=== PATIENT | male | born 1955 | race Caucasian/White ===

== ENCOUNTER → 2018-11-21 | Outpatient (CLI) | payer MEDICARE, OTHER ==
[~2018-11-21] MED LIST: ACET325 PO; BISA10S; FLUOXETINE HCL60 MG PO; GABA300 PO; HYDR1TAB94; IBUP600; Kristalose20 GM PO; LOPE2C; MIRT30ST; Milk Of Ma400 MG/5 M; Mirtazapine45 M1 PO; POWDERLAX238 GM PO; PROC25S; Prozac20 MG; REGULOID PO; RISP2; RISP3 PO; TAMS.4ER PO
[2018-11-22 09:03] LABS: U Amphetamine Screen Not Detected; U Barbituate Screen Not Detected; U Benzodiazapine Screen DETECTED; U Buprenorphine Screen Not Detected; U Cannabinoids Screen Not Detected; U Cocaine Screen Not Detected; U Methadone Screen Not Detected; U Methamphetamine Screen Not Detected; U Opiates Screen DETECTED; U Oxycodone Screen Not Detected; U Phencyclidine Screen Not Detected; U Propoxyphene Screen Not Detected
== END | disposition home or self-care (01) ==
LOC: LAB 19:44 → LAB SHORT 19:44
PROVIDERS: Nurse Practitioner Family
DX: R20.8 Other disturbances of skin sensation (principal); Z87.820 Personal history of traumatic brain injury; Z79.899 Other long term (current) drug therapy

== ENCOUNTER → 2018-12-04 | Outpatient (CLI) | payer MEDICARE, OTHER ==
[2018-12-04 14:00] LABS: Source, Urine Clean Catch
[2018-12-04 14:07] LABS: Bilirubin, Urine Neg (Neg); Blood, Urine Neg (Neg); Glucose Qualitative, Urine Neg (Neg); Ketones, Urine Neg (Neg); Leukocyte Esterase, Urine 1+ (Neg); Nitrite, Urine Neg (Neg); Protein, Urine Neg (Neg); Urobilinogen, Urine NORM (Normal)
[2018-12-04 14:14] LABS: Appearance, Urine Clear (Clear); Color, Urine Yellow (P-Yellow)
[2018-12-04 14:25] LABS: U Amphetamine Screen Not Detected; U Barbituate Screen Not Detected; U Benzodiazapine Screen DETECTED; U Buprenorphine Screen Not Detected; U Cannabinoids Screen Not Detected; U Cocaine Screen Not Detected; U Methadone Screen Not Detected; U Methamphetamine Screen Not Detected; U Opiates Screen Not Detected; U Oxycodone Screen Not Detected; U Phencyclidine Screen Not Detected; U Propoxyphene Screen Not Detected
[2018-12-04 14:27] LABS: Red Blood Cells, Urine Not Seen /hpf (0-2)
[2018-12-04 14:28] LABS: Squamous Epithelial Cells Mod /hpf (Few)
[2018-12-04 14:29] LABS: Bacteria Few /hpf
== END | disposition home or self-care (01) ==
LOC: LAB SHORT 13:58 → LAB 13:58
PROVIDERS: Nurse Practitioner Family
DX: Z51.81 Encounter for therapeutic drug level monitoring (principal); R20.8 Other disturbances of skin sensation; Z87.820 Personal history of traumatic brain injury; Z79.899 Other long term (current) drug therapy
CPT/HCPCS: 81001; 87086

== ENCOUNTER 2018-12-17 09:08 | Day surgery (SDC) | payer MEDICARE, OTHER ==
[~2018-12-17] VITALS: Ht 172.7 cm; Wt 70.5 kg
== END 2018-12-17 12:05 | disposition home or self-care (01) ==
LOC: ORSCSDS 09:08
DX: R15.9 Full incontinence of feces (principal); D12.3 Benign neoplasm of transverse colon; D12.2 Benign neoplasm of ascending colon; D12.4 Benign neoplasm of descending colon; D12.5 Benign neoplasm of sigmoid colon; K57.30 Diverticulosis of large intestine without perforation or abscess without bleeding; K64.8 Other hemorrhoids; Z86.010 Personal history of colon polyps; B18.2 Chronic viral hepatitis C; I10 Essential (primary) hypertension; I63.9 Cerebral infarction, unspecified; G81.94 Hemiplegia, unspecified affecting left nondominant side; F32.9 Major depressive disorder, single episode, unspecified; Z79.899 Other long term (current) drug therapy; F17.210 Nicotine dependence, cigarettes, uncomplicated
CPT/HCPCS: 88305; J2704; J7120

== ENCOUNTER → 2019-03-25 | Outpatient (CLI) | payer MEDICARE, OTHER ==
[2019-03-25 20:25] LABS: Appearance, Urine Clear (Clear); Bilirubin, Urine Neg (Neg); Blood, Urine Neg (Neg); Color, Urine Yellow (P-Yellow); Glucose Qualitative, Urine Neg (Neg); Ketones, Urine Neg (Neg); Leukocyte Esterase, Urine 2+ (Neg); Nitrite, Urine Neg (Neg); Protein, Urine Neg (Neg); Urobilinogen, Urine NORM (Normal); pH, Urine 6.5 (5.0-8.0)
[2019-03-25 20:55] LABS: Bacteria Many /hpf; Red Blood Cells, Urine 0-2 /hpf (0-2); Squamous Epithelial Cells Few /hpf (Few)
== END | disposition home or self-care (01) ==
LOC: LAB SHORT 19:47 → LAB 19:47
PROVIDERS: Nurse Practitioner Family
DX: N39.0 Urinary tract infection, site not specified (principal)
CPT/HCPCS: 81001; 87077; 87086; 87186

== ENCOUNTER → 2019-04-09 | Outpatient (CLI) | payer MEDICARE, OTHER ==
[2019-04-09 11:34] LABS: Source, Urine Clean Catch
[2019-04-09 12:40] LABS: Bilirubin, Urine Neg (Neg); Blood, Urine 4+ (Neg); Glucose Qualitative, Urine Neg (Neg); Ketones, Urine Neg (Neg); Leukocyte Esterase, Urine Neg (Neg); Nitrite, Urine Neg (Neg); Protein, Urine Neg (Neg); Urobilinogen, Urine NORM (Normal); pH, Urine 6.5 (5.0-8.0)
[2019-04-09 12:55] LABS: Appearance, Urine Clear (Clear); Color, Urine Yellow (P-Yellow)
[2019-04-09 12:56] LABS: Bacteria Few /hpf; Squamous Epithelial Cells Few /hpf (Few); White Blood Cells, Urine 0-2 /hpf (0-5)
== END | disposition home or self-care (01) ==
LOC: LAB 11:32 → LAB SHORT 11:32
PROVIDERS: Nurse Practitioner Family
DX: N39.0 Urinary tract infection, site not specified (principal)
CPT/HCPCS: 81001

== ENCOUNTER → 2019-04-16 | Outpatient (CLI) | payer MEDICARE, OTHER ==
[2019-04-16 14:09] LABS: Bilirubin, Urine Neg (Neg); Blood, Urine Neg (Neg); Glucose Qualitative, Urine Neg (Neg); Ketones, Urine Neg (Neg); Leukocyte Esterase, Urine Neg (Neg); Nitrite, Urine Neg (Neg); Protein, Urine Neg (Neg); Specific Gravity, Urine 1.015 (1.003-1.022); Urobilinogen, Urine NORM (Normal); pH, Urine 6.5 (5.0-8.0)
[2019-04-16 14:24] LABS: Appearance, Urine Clear (Clear); Color, Urine Yellow (P-Yellow)
== END ==
LOC: LAB 12:35 → LAB SHORT 12:35
PROVIDERS: Nurse Practitioner Family
DX: N39.0 Urinary tract infection, site not specified (principal); R31.29 Other microscopic hematuria
CPT/HCPCS: 81003

== ENCOUNTER → 2019-06-19 | Outpatient (CLI) | payer MEDICARE, OTHER ==
[~2019-06-19] MED LIST changes: +LORA.5 PO
[2019-06-19 19:28] LABS: Source, Urine Clean Catch
[2019-06-19 20:13] LABS: Bilirubin, Urine Neg (Neg); Blood, Urine Neg (Neg); Glucose Qualitative, Urine Neg (Neg); Ketones, Urine Neg (Neg); Leukocyte Esterase, Urine 1+ (Neg); Nitrite, Urine Neg (Neg); Protein, Urine Neg (Neg); Urobilinogen, Urine NORM (Normal); pH, Urine 6.5 (5.0-8.0)
[2019-06-19 20:23] LABS: Appearance, Urine Clear (Clear); Color, Urine Yellow (P-Yellow)
[2019-06-19 20:25] LABS: Bacteria Rare /hpf; Red Blood Cells, Urine 0-2 /hpf (0-2); Squamous Epithelial Cells Few /hpf (Few)
== END | disposition home or self-care (01) ==
LOC: LAB 19:26 → LAB SHORT 19:26
PROVIDERS: Nurse Practitioner Family
DX: N39.0 Urinary tract infection, site not specified (principal)
CPT/HCPCS: 81001; 87077; 87086; 87186

== ENCOUNTER → 2019-07-04 | Outpatient (CLI) | payer MEDICARE, OTHER ==
[2019-07-05 13:19] LABS: Source, Urine Clean Catch
[2019-07-05 14:44] LABS: Bilirubin, Urine Neg (Neg); Blood, Urine Neg (Neg); Glucose Qualitative, Urine Neg (Neg); Ketones, Urine Neg (Neg); Leukocyte Esterase, Urine Neg (Neg); Nitrite, Urine Neg (Neg); Protein, Urine Neg (Neg); Urobilinogen, Urine NORM (Normal); pH, Urine 6.5 (5.0-8.0)
[2019-07-05 15:04] LABS: Appearance, Urine Clear (Clear); Color, Urine Pale Yellow (P-Yellow)
== END ==
LOC: LAB 12:43 → LAB EV 12:43 → LAB SHORT 12:43
PROVIDERS: Nurse Practitioner Family
DX: N39.0 Urinary tract infection, site not specified (principal)
CPT/HCPCS: 81003

== ENCOUNTER 2019-07-10 22:51 | Emergency (ER) | payer MEDICARE, OTHER ==
[~2019-07-10] VITALS: Ht 172.7 cm; Wt 63.5 kg
[~2019-07-10 22:51] MED LIST changes: -LORA.5 PO
[2019-07-10] MEDS ORDERED: LORA.5 PO (23:16)
== END 2019-07-11 00:57 | disposition home or self-care (01) ==
LOC: ER 22:51
DX: Z00.8 Encounter for other general examination (principal); F17.200 Nicotine dependence, unspecified, uncomplicated; Z79.899 Other long term (current) drug therapy
CPT/HCPCS: 99284

== ENCOUNTER → 2019-07-30 | Outpatient (CLI) | payer MEDICARE, OTHER ==
[~2019-07-30] MED LIST changes: +LORA.5 PO
[2019-07-31 13:26] LABS: Bilirubin, Urine Neg (Neg); Blood, Urine Neg (Neg); Glucose Qualitative, Urine Neg (Neg); Ketones, Urine Neg (Neg); Leukocyte Esterase, Urine 1+ (Neg); Nitrite, Urine Neg (Neg); Protein, Urine Neg (Neg); Urobilinogen, Urine NORM (Normal)
[2019-07-31 13:55] LABS: Appearance, Urine Clear (Clear); Bacteria Few /hpf; Color, Urine Yellow (P-Yellow); Red Blood Cells, Urine 0-2 /hpf (0-2); Squamous Epithelial Cells Rare /hpf (Few); White Blood Cells, Urine 0-2 /hpf (0-5)
== END | disposition home or self-care (01) ==
LOC: LAB SHORT 18:25 → LAB 18:25
PROVIDERS: Nurse Practitioner Family
DX: N39.0 Urinary tract infection, site not specified (principal)
CPT/HCPCS: 81001

== ENCOUNTER → 2019-09-18 | Outpatient (CLI) | payer MEDICARE, OTHER ==
[2019-09-21 15:08] LABS: HEPATITIS C QUANTITATION HCV Not Detected IU/mL (.)
== END | disposition home or self-care (01) ==
LOC: LAB 12:08 → LAB SHORT 12:08
PROVIDERS: Internal Medicine Gastroenterology
DX: B19.20 Unspecified viral hepatitis C without hepatic coma (principal)
CPT/HCPCS: 87522

== ENCOUNTER → 2019-10-08 | Outpatient (CLI) | payer MEDICARE, OTHER ==
[2019-10-08 14:03] LABS: Valproic Acid 40.8 ug/mL (50.0-100.0)
== END | disposition home or self-care (01) ==
LOC: LAB 12:29 → LAB SHORT 12:29
PROVIDERS: Psychiatry & Neurology Psychiatry
DX: Z51.81 Encounter for therapeutic drug level monitoring (principal); Z79.899 Other long term (current) drug therapy
CPT/HCPCS: 80164

== ENCOUNTER → 2019-10-10 | Outpatient (CLI) | payer MEDICARE, OTHER ==
[2019-10-10 14:54] LABS: Bilirubin, Urine Neg (Neg); Blood, Urine Neg (Neg); Glucose Qualitative, Urine Neg (Neg); Ketones, Urine 1+ (Neg); Leukocyte Esterase, Urine 2+ (Neg); Nitrite, Urine Pos (Neg); Protein, Urine Neg (Neg); Urobilinogen, Urine NORM (Normal)
[2019-10-10 15:40] LABS: Appearance, Urine Clear (Clear); Color, Urine Yellow (P-Yellow)
[2019-10-10 15:41] LABS: Bacteria Many /hpf; Mucus Light (0-Heavy); Red Blood Cells, Urine 0-2 /hpf (0-2); Squamous Epithelial Cells Few /hpf (Few)
== END | disposition home or self-care (01) ==
LOC: LAB 12:24 → LAB SHORT 12:24
PROVIDERS: Nurse Practitioner Family
DX: N39.0 Urinary tract infection, site not specified (principal)
CPT/HCPCS: 81001; 87077; 87086; 87186

== ENCOUNTER 2019-12-11 08:17 | Day surgery (SDC) | payer MEDICARE, OTHER ==
[~2019-12-11] VITALS: Ht 172.7 cm; Wt 65.9 kg
[~2019-12-11 08:17] MED LIST changes: +Depakote125 MG; +Haloperidol2 MG/1 ML; +LIBRAX CAPSULE1 EACH; +Norco 5-325 Ta1 EACH
--- NOTE | 2019-12-11 10:49 | NUR ---
12/11/19 1049 Shayna Paredes PATIENT HAD CAREGIVER THAT CAME WITH HIM FROM HIS [facility]. SHE WAS ABLE TO DRESS THE PATIENT AND TRANSFER HIM TO THE WHEELCHAIR. PATIENT WAS DISCHARGED IN STABLE CONDITION
== END 2019-12-11 10:40 | disposition home or self-care (01) ==
LOC: ORSCSDS 08:17
PROVIDERS: Internal Medicine Gastroenterology
PROC: 0DBL8ZX Excision of Transverse Colon, Via Natural or Artificial Opening Endoscopic, Diagnostic (ICD-10-PCS; principal; 2019-12-11 09:45)
PROC: 0DBM8ZX Excision of Descending Colon, Via Natural or Artificial Opening Endoscopic, Diagnostic (ICD-10-PCS; principal; 2019-12-11 09:45)
PROC: 0DBN8ZX Excision of Sigmoid Colon, Via Natural or Artificial Opening Endoscopic, Diagnostic (ICD-10-PCS; principal; 2019-12-11 09:45)
PROC: 0DBK8ZX Excision of Ascending Colon, Via Natural or Artificial Opening Endoscopic, Diagnostic (ICD-10-PCS; principal; 2019-12-11 09:45)
DX: Z86.010 Personal history of colon polyps (principal); D12.3 Benign neoplasm of transverse colon; D12.4 Benign neoplasm of descending colon; K63.5 Polyp of colon; K64.1 Second degree hemorrhoids; I10 Essential (primary) hypertension; F17.210 Nicotine dependence, cigarettes, uncomplicated; Z79.899 Other long term (current) drug therapy
CPT/HCPCS: 88305; J2704; J7120

== ENCOUNTER → 2020-01-17 | Outpatient (CLI) | payer MEDICARE, OTHER ==
[2020-01-18 11:24] LABS: Source, Urine Clean Catch
[2020-01-18 11:44] LABS: Appearance, Urine Clear (Clear); Bilirubin, Urine Neg (Neg); Blood, Urine Neg (Neg); Color, Urine Yellow (P-Yellow); Glucose Qualitative, Urine Neg (Neg); Ketones, Urine Neg (Neg); Leukocyte Esterase, Urine 3+ (Neg); Nitrite, Urine Neg (Neg); Protein, Urine Neg (Neg); Urobilinogen, Urine NORM (Normal)
[2020-01-18 12:02] LABS: Red Blood Cells, Urine 0-2 /hpf (0-2)
[2020-01-18 12:03] LABS: Bacteria Mod /hpf; Squamous Epithelial Cells Rare /hpf (Few)
== END | disposition home or self-care (01) ==
LOC: LAB 11:21 → LAB SHORT 11:21
PROVIDERS: Nurse Practitioner Family
DX: N39.0 Urinary tract infection, site not specified (principal)
CPT/HCPCS: 81001; 87077; 87086; 87186

== ENCOUNTER → 2020-02-11 | Outpatient (CLI) | payer MEDICARE, OTHER ==
[2020-02-11 16:51] LABS: Valproic Acid 92.3 ug/mL (50.0-100.0)
== END | disposition home or self-care (01) ==
LOC: LAB 12:31 → LAB SHORT 12:31
PROVIDERS: Psychiatry & Neurology Psychiatry
DX: Z51.81 Encounter for therapeutic drug level monitoring (principal); Z79.899 Other long term (current) drug therapy
CPT/HCPCS: 80164

== ENCOUNTER → 2020-03-02 | Outpatient (CLI) | payer MEDICARE, OTHER ==
[2020-03-02 15:28] LABS: Bilirubin, Urine Neg (Neg); Blood, Urine Neg (Neg); Glucose Qualitative, Urine Neg (Neg); Ketones, Urine Neg (Neg); Leukocyte Esterase, Urine 3+ (Neg); Nitrite, Urine Neg (Neg); Protein, Urine Neg (Neg); Urobilinogen, Urine NORM (Normal)
[2020-03-02 15:43] LABS: Appearance, Urine Cloudy (Clear); Color, Urine Yellow (P-Yellow)
[2020-03-02 15:53] LABS: Bacteria Many /hpf; Red Blood Cells, Urine 0-2 /hpf (0-2); Squamous Epithelial Cells Few /hpf (Few); Triple Phosphate Crystals Mod /hpf
== END | disposition home or self-care (01) ==
LOC: LAB SHORT 13:31 → LAB 13:31
PROVIDERS: Nurse Practitioner Family
DX: N39.0 Urinary tract infection, site not specified (principal)
CPT/HCPCS: 81001; 87077; 87086; 87186

== ENCOUNTER 2020-03-30 08:03 | Emergency (ER) | payer MEDICARE, OTHER ==
[~2020-03-30] VITALS: Ht 175.3 cm; Wt 74.4 kg
[2020-03-30 09:03] LABS: BASOPHILS ABSOLUTE AUTO 0.03 K/mm3 (0.00-0.23); BASOPHILS PERCENT AUTO 1 % (0-2); EOSINOPHILS ABSOLUTE AUTO 0.03 K/mm3 (0.00-0.68); EOSINOPHILS PERCENT AUTO 1 % (0-6); Hematocrit 32.6 % (37.0-53.0); Hemoglobin 10.7 g/dL (13.5-17.5); IMMATURE GRAN ABSOLUTE AUTO 0.06 K/mm3 (0.00-0.10); IMMATURE GRAN PERCENT AUTO 1 % (0-1); LYMPHOCYTES ABSOLUTE AUTO 1.93 K/mm3 (0.84-5.20); LYMPHOCYTES PERCENT AUTO 29 % (21-46); MONOCYTES ABSOLUTE AUTO 1.07 K/mm3 (0.16-1.47); MONOCYTES PERCENT AUTO 16 % (4-13); Mean Corpuscular HGB 30.3 pg (26.0-34.0); Mean Corpuscular HGB Conc 32.8 g/dL (31.5-36.5); Mean Corpuscular Volume 92 fL (80-100); Mean Platelet Volume 9.9 fL (9.1-12.4); NEUTROPHILS ABSOLUTE AUTO 3.49 K/mm3 (1.96-9.15); NEUTROPHILS PERCENT AUTO 53 % (41-73); Platelet Count 217 K/mm3 (150-400); RDW Coefficient Variation 14.6 % (11.7-14.2); RDW Standard Deviation 49.7 fL (35.1-46.3); Red Blood Cell Count 3.53 M/mm3 (4.30-5.90); White Blood Cell Count 6.61 K/mm3 (4.00-11.30)
[2020-03-30 09:23] LABS: Alanine Aminotransfer (ALT/SGP 35 U/L (12-78); Albumin/Globulin Ratio 0.7 (0.8-1.8); Alk Phos 51 U/L (50-136); Anion Gap 7 mmol/L (6-16); Aspartate Aminotrans (AST/SGOT 69 U/L (12-37); Bilirubin, Total 0.4 mg/dL (0.1-1.0); Blood Urea Nitrogen 20 mg/dL (8-24); Bun/Creatinine Ratio 20.9 (12.0-20.0); CO2, Blood 25 mmol/L (21-32); Calcium, Blood 8.7 mg/dL (8.5-10.1); Chloride, Blood 109 mmol/L (98-108); Creatinine, Blood 0.96 mg/dL (0.60-1.20); Globulin, Blood 4.4 g/dL (2.2-4.0); Glomerular Filtration Rate >60 (60-); Glucose, Blood 80 mg/dL (70-99); Potassium, Blood 4.1 mmol/L (3.5-5.5); Sodium, Blood 141 mmol/L (136-145); Total Protein, Blood 7.4 g/dL (6.4-8.2)
--- NOTE | 2020-03-30 11:51 | NUR ---
Called to ER to review patients needs with ER physician, hospitaist and ER case preparer and liner. Chronically ill pt with TBI and multiple comorbid conditions. pt presents with covid, per nursing he has cough and requiring minimal oxygen. review of pt chart and with staff at [facility] and called his brothJem who is his documented POA. Plan is to send him back to [facility] with home health. He needs some of his behaviours controlled when under stress. Staff knows hime there and manges him well according to his brother. If he declines consedering his steady decline and care needs the most holistic and compassionate plan argeed upon by his brother is to keep him at his hoem which is [facility]. Advised physician and career services officer and plan is discharge.
== END 2020-03-30 12:45 | disposition home or self-care (01) ==
LOC: ER 08:03
PROVIDERS: Emergency Medicine
DX: U07.1 COVID-19 (principal); R05 Cough; R09.02 Hypoxemia; F20.9 Schizophrenia, unspecified; R06.02 Shortness of breath; I10 Essential (primary) hypertension; F17.200 Nicotine dependence, unspecified, uncomplicated; Z79.899 Other long term (current) drug therapy
CPT/HCPCS: 71045; 80053; 85025; 93005; 93010; 99284-25; U0003

== ENCOUNTER → 2020-04-15 | Outpatient (CLI) | payer MEDICARE, OTHER | END | disposition home or self-care (01) | LOC: LAB 12:28 → LAB SHORT 12:28 | DX: S81.802A Unspecified open wound, left lower leg, initial encounter (principal) | CPT/HCPCS: 87070; 87205 ==

== ENCOUNTER → 2020-05-22 | Outpatient (CLI) | payer MEDICARE, OTHER ==
[~2020-05-22] MED LIST changes: +ALBU2.5V5 INH; +AMOX500 PO; +BENZ100A PO; +BISA10S PR; +CEPH500 PO; +DULCOLAX400 MG/5 M PO; -Depakote125 MG; +Depakote125 MG PO; +GUAI200 PO; -Haloperidol2 MG/1 ML; +Haloperidol2 MG/1 ML PO; +NYAMYC15 G1 TOP; +ONDA4ODT MM; +PSYLLIUM SEED PO; -REGULOID PO; +VISBIOME 112.51 EACH PO; +VITAMIN D-40010 MC1 PO
[2020-05-22 12:32] LABS: PSA, %Free 40.3 %; PSA, Free 0.029 ng/mL; Prostate Specific Antigen 0.072 ng/mL (0.000-4.000)
== END | disposition home or self-care (01) ==
LOC: LAB 09:30
PROVIDERS: Nurse Practitioner
DX: R97.20 Elevated prostate specific antigen [PSA] (principal)
CPT/HCPCS: 84153; 84154

== ENCOUNTER → 2020-06-18 | Outpatient (CLI) | payer MEDICARE, OTHER ==
[2020-06-18 13:37] LABS: BASOPHILS ABSOLUTE AUTO 0.05 K/mm3 (0.00-0.23); BASOPHILS PERCENT AUTO 1 % (0-2); EOSINOPHILS PERCENT AUTO 4 % (0-6); Hematocrit 35.5 % (37.0-53.0); Hemoglobin 11.6 g/dL (13.5-17.5); IMMATURE GRAN ABSOLUTE AUTO 0.06 K/mm3 (0.00-0.10); IMMATURE GRAN PERCENT AUTO 1 % (0-1); LYMPHOCYTES PERCENT AUTO 43 % (21-46); MONOCYTES PERCENT AUTO 10 % (4-13); Mean Corpuscular HGB 30.9 pg (26.0-34.0); Mean Corpuscular HGB Conc 32.7 g/dL (31.5-36.5); Mean Corpuscular Volume 94 fL (80-100); Mean Platelet Volume 10.5 fL (9.1-12.4); NEUTROPHILS ABSOLUTE AUTO 3.02 K/mm3 (1.96-9.15); NEUTROPHILS PERCENT AUTO 42 % (41-73); Platelet Count 333 K/mm3 (150-400); RDW Coefficient Variation 15.3 % (11.7-14.2); RDW Standard Deviation 53.3 fL (35.1-46.3); Red Blood Cell Count 3.76 M/mm3 (4.30-5.90); White Blood Cell Count 7.23 K/mm3 (4.00-11.30)
[2020-06-18 13:50] LABS: Valproic Acid 47.5 ug/mL (50.0-100.0)
[2020-06-18 14:06] LABS: Alanine Aminotransfer (ALT/SGP 18 U/L (12-78); Albumin, Blood 2.9 g/dL (3.4-5.0); Albumin/Globulin Ratio 0.6 (0.8-1.8); Alk Phos 50 U/L (50-136); Anion Gap 6 mmol/L (6-16); Aspartate Aminotrans (AST/SGOT 26 U/L (12-37); Bilirubin, Total 0.4 mg/dL (0.1-1.0); Blood Urea Nitrogen 21 mg/dL (8-24); Bun/Creatinine Ratio 27.9 (12.0-20.0); CO2, Blood 27 mmol/L (21-32); Chloride, Blood 110 mmol/L (98-108); Creatinine, Blood 0.75 mg/dL (0.60-1.20); Globulin, Blood 4.5 g/dL (2.2-4.0); Glomerular Filtration Rate >60 (60-); Glucose, Blood 95 mg/dL (70-99); Potassium, Blood 3.9 mmol/L (3.5-5.5); Sodium, Blood 143 mmol/L (136-145); Total Protein, Blood 7.4 g/dL (6.4-8.2)
== END ==
LOC: LAB SHORT 07:45 → LAB 07:45
PROVIDERS: Nurse Practitioner Family; Psychiatry & Neurology Psychiatry
DX: Z51.81 Encounter for therapeutic drug level monitoring (principal); R09.02 Hypoxemia; Z79.899 Other long term (current) drug therapy
CPT/HCPCS: 80053; 80164; 85025

== ENCOUNTER → 2020-06-25 | Outpatient (CLI) | payer MEDICARE, OTHER ==
[2020-06-25 15:14] LABS: Percent Saturation 36.2 % (20.0-50.0)
== END | disposition home or self-care (01) ==
LOC: LAB 07:55 → LAB SHORT 07:55 → OLS 07:55
PROVIDERS: Nurse Practitioner Family
DX: D50.9 Iron deficiency anemia, unspecified (principal); D51.9 Vitamin B12 deficiency anemia, unspecified
CPT/HCPCS: 82607; 82746; 83540; 83550

== ENCOUNTER 2020-07-20 22:38 | Inpatient (IN) | payer MEDICARE, OTHER ==
[~2020-07-20] VITALS: Ht 172.7 cm; Wt 72.6 kg
[~2020-07-20 22:38] MED LIST changes: -ALBU2.5V5 INH; -AMOX500 PO; -BENZ100A PO; -BISA10S PR; -CEPH500 PO; -DULCOLAX400 MG/5 M PO; -GUAI200 PO; -NYAMYC15 G1 TOP; -ONDA4ODT MM; -VISBIOME 112.51 EACH PO; -VITAMIN D-40010 MC1 PO
[2020-07-20] MEDS ORDERED: AMOX500 PO (22:56)
[2020-07-20] MEDS ORDERED: NYAMYC15 G1 TOP (22:59)
[2020-07-20] MEDS ORDERED: VITAMIN D-40010 MC1 PO (23:00)
[2020-07-20] MEDS ORDERED: BENZ100A PO (23:00)
[2020-07-20] MEDS ORDERED: BISA10S PR (23:01)
[2020-07-20] MEDS ORDERED: GUAI200 PO (23:02)
[2020-07-20] MEDS ORDERED: ONDA4ODT MM (23:02)
[2020-07-20 23:26] LABS: BASOPHILS ABSOLUTE AUTO 0.04 K/mm3 (0.00-0.23); BASOPHILS PERCENT AUTO 0 % (0-2); EOSINOPHILS PERCENT AUTO 0 % (0-6); Hematocrit 33.8 % (37.0-53.0); Hemoglobin 10.9 g/dL (13.5-17.5); IMMATURE GRAN ABSOLUTE AUTO 0.12 K/mm3 (0.00-0.10); IMMATURE GRAN PERCENT AUTO 1 % (0-1); LYMPHOCYTES ABSOLUTE AUTO 1.41 K/mm3 (0.84-5.20); LYMPHOCYTES PERCENT AUTO 9 % (21-46); MONOCYTES ABSOLUTE AUTO 1.29 K/mm3 (0.16-1.47); MONOCYTES PERCENT AUTO 8 % (4-13); Mean Corpuscular HGB Conc 32.2 g/dL (31.5-36.5); Mean Corpuscular Volume 93 fL (80-100); Mean Platelet Volume 10.6 fL (9.1-12.4); NEUTROPHILS PERCENT AUTO 82 % (41-73); Platelet Count 273 K/mm3 (150-400); RDW Coefficient Variation 14.5 % (11.7-14.2); RDW Standard Deviation 49.4 fL (35.1-46.3); Red Blood Cell Count 3.63 M/mm3 (4.30-5.90); White Blood Cell Count 15.76 K/mm3 (4.00-11.30)
[2020-07-20 23:46] LABS: Albumin, Blood 3.1 g/dL (3.4-5.0); Albumin/Globulin Ratio 0.6 (0.8-1.8); Bilirubin, Total 0.4 mg/dL (0.1-1.0); Bun/Creatinine Ratio 22.4 (12.0-20.0); Calcium, Blood 9.2 mg/dL (8.5-10.1); Creatinine, Blood 1.34 mg/dL (0.60-1.20); Globulin, Blood 4.8 g/dL (2.2-4.0); Potassium, Blood 5.1 mmol/L (3.5-5.5); Total Protein, Blood 7.9 g/dL (6.4-8.2)
[2020-07-21 06:28] LABS: Valproic Acid 44.2 ug/mL (50.0-100.0)
--- NOTE | 2020-07-21 18:08 | NUR ---
SHIFT SUMMARY PT IS AN ER ADMIT THAT CAME ON TO THE FLOOR THIS MORING. PT IS A&O PT KNOWS NAME, , LOCATION, CITY, YEAR. WHEN HE ANSWERS QUESTIONS AT TIMES HE SEEMS CONFUSED BUT OTHER TIMES HE IS ABLE TO MAKE NEEDS KNOWN. PT WORKED WITH PHYSICAL THERAPY AND GOT OUT OF BED, TRANSFERED TO CHAIR AND BACK. PT REMAINED ON 6L OF O2 DURING SHIFT. PT HAS USED THE URINAL 2 TIMES THIS SHIFT. THERE IS A 1X1 PRESSURE SORE ON PT LEFT ANKLE, PICTURES TAKEN FOR CHART. PT DENIES P/N/V DURING SHIFT. PT IS CURENTLY SITTING UP IN BED WITH PRINCIPAL SYSTEMS ENGINEER HELPING HIM EAT. CALL LIGHT NEXT TO HIM.
--- NOTE | 2020-07-22 03:34 | NUR ---
SHIFT SUMMARY: PATIENT IS A&OX3, CALLS FOR ASSISTANCE WITH THE URINAL AND IS CONTINENT THIS SHIFT. SATING 97% ON 5L NC, TITRATED DOWN TO 3L AND MAINTIANES SATURATION AT 95% T&P GIVEN Q2H, BED ALARM IS ON FOR SAFETY. WOUND ON LEFT ANKLE WAS CLEANSED WITH WOUND WASH AND MEPILEX IS APPLIED.
[2020-07-22 05:22] LABS: BASOPHILS ABSOLUTE AUTO 0.04 K/mm3 (0.00-0.23); BASOPHILS PERCENT AUTO 0 % (0-2); EOSINOPHILS ABSOLUTE AUTO 0.28 K/mm3 (0.00-0.68); EOSINOPHILS PERCENT AUTO 3 % (0-6); Hematocrit 32.9 % (37.0-53.0); Hemoglobin 10.4 g/dL (13.5-17.5); IMMATURE GRAN ABSOLUTE AUTO 0.07 K/mm3 (0.00-0.10); IMMATURE GRAN PERCENT AUTO 1 % (0-1); LYMPHOCYTES ABSOLUTE AUTO 3.25 K/mm3 (0.84-5.20); LYMPHOCYTES PERCENT AUTO 29 % (21-46); MONOCYTES ABSOLUTE AUTO 1.45 K/mm3 (0.16-1.47); MONOCYTES PERCENT AUTO 13 % (4-13); Mean Corpuscular HGB 30.2 pg (26.0-34.0); Mean Corpuscular HGB Conc 31.6 g/dL (31.5-36.5); Mean Corpuscular Volume 96 fL (80-100); Mean Platelet Volume 10.8 fL (9.1-12.4); NEUTROPHILS ABSOLUTE AUTO 6.22 K/mm3 (1.96-9.15); NEUTROPHILS PERCENT AUTO 55 % (41-73); Platelet Count 245 K/mm3 (150-400); RDW Coefficient Variation 14.9 % (11.7-14.2); RDW Standard Deviation 52.5 fL (35.1-46.3); Red Blood Cell Count 3.44 M/mm3 (4.30-5.90); White Blood Cell Count 11.31 K/mm3 (4.00-11.30)
[2020-07-22 05:46] LABS: Anion Gap 4 mmol/L (6-16); Blood Urea Nitrogen 21 mg/dL (8-24); Bun/Creatinine Ratio 26.9 (12.0-20.0); CO2, Blood 28 mmol/L (21-32); Calcium, Blood 8.7 mg/dL (8.5-10.1); Chloride, Blood 112 mmol/L (98-108); Creatinine, Blood 0.78 mg/dL (0.60-1.20); Glomerular Filtration Rate >60 (60-); Glucose, Blood 77 mg/dL (70-99); Potassium, Blood 4.3 mmol/L (3.5-5.5); Sodium, Blood 144 mmol/L (136-145)
[2020-07-22] MEDS ORDERED: LORA.5 PO (11:55)
[2020-07-22] MEDS ORDERED: DULCOLAX400 MG/5 M PO (11:59)
--- NOTE | 2020-07-22 17:28 | NUR ---
SHIFT SUMMARY- PT IS ALERT, PLESANT AND COOPETATIVE. HE IS EATING AND DRINKING WELL. HE WORKED WITH PT AND RT TODAY. RT GAVE HIM A FLUTTER. HIS LUNG SOUNDS ARE COURSE. HE IS USING THE URINAL IN THE BED. HIS BED IS IN THE LOW POSITION AND CALL LIGHT IS WITHIN REACH.
--- NOTE | 2020-07-22 18:17 | NUR ---
PT WAS EATING DINNER AND ASPERTATED ON THE MEAT IN HIS DINNER. HE COUGHED FOR APROX 15MIN. AND WAS SUCTIONED. HELD DINNER AFTERWARDS. WILL RECOMEND ST FOLLOW UP IN AM
[2020-07-23 05:02] LABS: BASOPHILS ABSOLUTE AUTO 0.03 K/mm3 (0.00-0.23); BASOPHILS PERCENT AUTO 0 % (0-2); EOSINOPHILS ABSOLUTE AUTO 0.19 K/mm3 (0.00-0.68); EOSINOPHILS PERCENT AUTO 2 % (0-6); Hematocrit 33.3 % (37.0-53.0); Hemoglobin 10.7 g/dL (13.5-17.5); IMMATURE GRAN ABSOLUTE AUTO 0.06 K/mm3 (0.00-0.10); IMMATURE GRAN PERCENT AUTO 1 % (0-1); LYMPHOCYTES ABSOLUTE AUTO 2.99 K/mm3 (0.84-5.20); LYMPHOCYTES PERCENT AUTO 31 % (21-46); MONOCYTES ABSOLUTE AUTO 1.29 K/mm3 (0.16-1.47); MONOCYTES PERCENT AUTO 13 % (4-13); Mean Corpuscular HGB 30.5 pg (26.0-34.0); Mean Corpuscular HGB Conc 32.1 g/dL (31.5-36.5); Mean Corpuscular Volume 95 fL (80-100); Mean Platelet Volume 10.1 fL (9.1-12.4); NEUTROPHILS ABSOLUTE AUTO 5.19 K/mm3 (1.96-9.15); NEUTROPHILS PERCENT AUTO 53 % (41-73); Platelet Count 232 K/mm3 (150-400); RDW Coefficient Variation 14.7 % (11.7-14.2); RDW Standard Deviation 51.5 fL (35.1-46.3); Red Blood Cell Count 3.51 M/mm3 (4.30-5.90); White Blood Cell Count 9.75 K/mm3 (4.00-11.30)
[2020-07-23 05:33] LABS: Anion Gap 5 mmol/L (6-16); Blood Urea Nitrogen 15 mg/dL (8-24); Bun/Creatinine Ratio 21.7 (12.0-20.0); CO2, Blood 30 mmol/L (21-32); Calcium, Blood 8.8 mg/dL (8.5-10.1); Chloride, Blood 106 mmol/L (98-108); Creatinine, Blood 0.69 mg/dL (0.60-1.20); Glomerular Filtration Rate >60 (60-); Glucose, Blood 85 mg/dL (70-99); Potassium, Blood 4.3 mmol/L (3.5-5.5); Sodium, Blood 141 mmol/L (136-145)
--- NOTE | 2020-07-23 05:33 | NUR ---
SHIFT SUMMARY PATIENT ALERT AND ORIENTED. HAD NO COMPLAINTS OF PAIN OR SHORTNESS OF BREATH. PATIENT REMAINS ON THREE LITERS O2 VIA NASAL CANULA. WAS ABLE TO SLEEP WELL OVERNIGHT. IV PATENT AND FLUSHED. BED IN LOWEST POSITION WITH WHEELS LOCKED AND ALARM ON. CALL LIGHT WITHIN REACH. REPORT GIVEN TO ONCOMING RN.
--- NOTE | 2020-07-23 17:32 | NUR ---
PT AOX3 AND COOPERATIVE OF CARE. PT SEEMS TO BE IMPROVING AND WAS ABLE TO SIT AT THE SIDE OF THE BED AND DANGLE HIS FEET TODAY WITH PHYSICAL THERAPY. PT HAS 3L OF 02 RUNNING AT THIS TIME. WILL CONTINUE TO MONITOR. CALL LIGHT IS WITHIN REACH AND BED ALARM IN PLACE.
--- NOTE | 2020-07-24 07:27 | NUR ---
SHIFT SUMMARY PATIENT ALERT AND ORIENTED. HAD NO COMPLAINTS OF PAIN. PATIENT SOUNDS MORE GURGLY WHEN LISTENING TO HIM BREATHE, O2 INCREASED TO 5 OVERNIGHT. PATIENT APPEARS TO BE CONSTIPATED. IV PATENT AND FLUSHED. BED IN LOWEST POSITION WITH WHEELS LOCKED AND ALARM ON. CALL LIGHT WITHIN REACH. REPORT GIVEN TO ONCOMING RN.
--- NOTE | 2020-07-24 18:29 | NUR ---
PT HAS BEEN AO ALL DAY. PT HAS HIS O2 DOWN TO 2 L PER RT. PT DOING WELL AND HAS BEEN HAVING BMs TODAY AND IS A HEAVY TWO PERSON TO BEDSIDE COMMODE. PT WAS TREATED FOR CONSTIPATIONX1 TODAY AND THIS HAS BEEN EFFECTIVE. WILL CONTINUE TO MONITOR.
--- NOTE | 2020-07-25 04:26 | NUR ---
SHIFT SUMMARY ASSUMED CARE OF PT AT 1900. PT IS A/OX3 BUT HAS DYSPHASIA DUE TO CVA. PT CAN STATES SHORT SENTENCES. HEART SOUNDS REGULAR, LUNG SOUNDS HAVE FINE CRACKLES AT THE BASES, PT IS ON 2L NC. PT WAS CONTINENT T/O THE NIGHT. PT TOOK HIS PILLS ONE AT A TIME WITH APPLE SAUCE. PT MEPILEX ON L ANKLE IS STILL C/D/I. PT STATES HE HAS NO NEW COMPLAINTS. CALL LIGHT IN REACH, BED IN LOWEST POSTION.
[2020-07-25 04:43] LABS: BASOPHILS ABSOLUTE AUTO 0.04 K/mm3 (0.00-0.23); BASOPHILS PERCENT AUTO 1 % (0-2); EOSINOPHILS ABSOLUTE AUTO 0.45 K/mm3 (0.00-0.68); EOSINOPHILS PERCENT AUTO 6 % (0-6); Hematocrit 32.5 % (37.0-53.0); Hemoglobin 10.4 g/dL (13.5-17.5); IMMATURE GRAN ABSOLUTE AUTO 0.08 K/mm3 (0.00-0.10); IMMATURE GRAN PERCENT AUTO 1 % (0-1); LYMPHOCYTES ABSOLUTE AUTO 2.69 K/mm3 (0.84-5.20); LYMPHOCYTES PERCENT AUTO 34 % (21-46); MONOCYTES ABSOLUTE AUTO 1.06 K/mm3 (0.16-1.47); MONOCYTES PERCENT AUTO 13 % (4-13); Mean Corpuscular HGB 30.1 pg (26.0-34.0); Mean Corpuscular Volume 94 fL (80-100); NEUTROPHILS ABSOLUTE AUTO 3.61 K/mm3 (1.96-9.15); NEUTROPHILS PERCENT AUTO 46 % (41-73); Platelet Count 226 K/mm3 (150-400); RDW Coefficient Variation 14.5 % (11.7-14.2); Red Blood Cell Count 3.45 M/mm3 (4.30-5.90); White Blood Cell Count 7.93 K/mm3 (4.00-11.30)
[2020-07-25 05:02] LABS: Albumin, Blood 2.7 g/dL (3.4-5.0); Anion Gap 4 mmol/L (6-16); Blood Urea Nitrogen 23 mg/dL (8-24); Bun/Creatinine Ratio 29.8 (12.0-20.0); CO2, Blood 30 mmol/L (21-32); Chloride, Blood 107 mmol/L (98-108); Creatinine, Blood 0.77 mg/dL (0.60-1.20); Glomerular Filtration Rate >60 (60-); Glucose, Blood 83 mg/dL (70-99); Phosphorus, Blood 3.6 mg/dL (2.5-4.9); Potassium, Blood 4.1 mmol/L (3.5-5.5); Sodium, Blood 141 mmol/L (136-145)
--- NOTE | 2020-07-25 17:35 | NUR ---
SHIFT SUMMARY PATIENT ALERT, ORIENTED X3 THIS SHIFT. PATIENT HEAVY 2 PERSON ASSIST TO THE BEDSIDE COMODE. PATIENT DISPLAYS LEFT SIDED NEGLECT DUE TO PREVIOUS CVA. NO ACUTE CHANGES THIS SHIFT. PATIENT AWAKE AND WATCHING TELEVISION THROUGHOUT THIS SHIFT. PATIENT COOPERATIVE AND INTERACTIVE WITH STAFF. PATIENT WORKED WITH PHYSICAL THERAPY THIS AFTERNOON. PATIENT CURRENTLY UP IN BED WATCHING TELEVISION.
--- NOTE | 2020-07-26 06:05 | NUR ---
SHIFT SUMMARY PT ON 1 LTR O2 VIA NC WHEN ASSUMED CARE, REQ O2 REMOVED, PT WAS ABLE TO MAINTAIN SATS GREATER THAN 90% ON RA; PT DID DESAT DURING SLEEP AND 02 WAS REAPPLIED AT 2L TO MAINTAIN SATS 90% OR GREATER. NO OTHER CHANGES THIS SHIFT, SLEPT T/O THE NIGHT & SLEEPING AT THIS TIME, CALL LIGHT IN REACH, WILL CONT TO MONITOR UNTIL REPORT GIVEN TO DAY RN.
--- NOTE | 2020-07-26 16:24 | NUR ---
PT IS ALERT ORIENTED TO PLACE AND SELF, THE PT IS UP WITH MAX ASSIST TO THE BSC, THE PT WAS UP 2 TIMES TODAY AND WAS ABLE TO HAVE A LARGE SOFT BM, THE APPEARS TO BE BREATHING EASILY ON RA AT THIS TIME, THE PT WAS REPOSITIONED T/O THE DAY, THE LIFE ENRICHMENT DIRECTOR ASSISTED THE PT WITH MEALS, CALL LIGHT IN REACH, PT USES CALL LIGTH APPROPRIATLY, WILL CONTINUE TO MONITOR AND ASSESS FOR CHANGES
--- NOTE | 2020-07-27 05:07 | NUR ---
SHIFT SUMMARY NO ACUTE CHANGES THIS SHIFT, NO C/O ANY KIND, SLEPT WELL T/O THE NIGHT & SLEEPING AT THIS TIME, CALL LIGHT IN REACH, WILL CONT TO MONITOR UNTIL REPORT GIVEN TO DAY RN.
--- NOTE | 2020-07-27 16:45 | NUR ---
SHIFT SUMMARY PT RESTING QUIETLY AT START OF SHIFT. WOKE EASILY FOR SHIFT REPORT, BUT SPEECH IS SOMETIMES GARBLED. PT REPORTED HX OF CVA; L SIDED WEAKNESS WITH SLIGHT CONTRACTURE TO LUE. PT REPORTED NUMBNESS TO L SIDE EXTREMITIES WELL. PT ADMITTED FOR PNM R/T ASPIRATION. PT IS LIMITED TO WHAT HE CAN FEED HIMSELF, REQUIRING FEEDING ASSISTANCE. MEDS TAKEN WHOLE IN APPLESAUCE W/O DIFFICULTY. PT IS CONTINENT/INCONTINENT OF BOWEL AND BLADDER. PT UP TO EOB WITH P/T TODAY. PT IS VERY HEAVY 2P MAX ASSIST TO BSC. PER SHOP ESTIMATOR, PT TO D/C BACK TO [facility] IN AM. CALL LT IN REACH. ABLE TO MAKE NEEDS KNOWN.
--- NOTE | 2020-07-27 20:45 | NUR ---
ASSUMPTION OF CARE. CHAYA AOX2, ASKED WHY HE WAS HERE. INFORMED AND RE-ORIENTED. HE IS VERY FRAIL APPEARING, WEAK, AND PALE. LEFT SIDE WEAKNESS FROM PREVIOUS CVA, SOME CONTRACTURES, GARBLED SPEECH. CLEAR BUT DIMINISHED, WILL ATTEMPT TO REMOVE NC TONIGHT TO SEE HOW HE IS DOING ON RA. DENIES COUGH OR CONGESTION. MILD SWELLING IN LEFT ANKLE. DRESSING TO WOUND IS INTACT. CALL LIGHT IS IN REACH, BED ALARM IS ON.
--- NOTE | 2020-07-28 04:54 | NUR ---
SHIFT SUMMARY: AOX2 WITH SOME CONFUSION THAT COMES AND GOES. BEDREST, REPOSITION PRN. LUNG SOUNDS DIMINISHED IN BASES, CLEAR UPPER LOBES, COUGH IS OCCATIONAL. WEANED OFF O2 THIS SHIFT, CURRENTLY RUNNING ON RA AND GREATER THAN 90%. VS WNL, AFEBRILE. HAS BEEN VERY QUITE THIS SHIFT, SLEEPING WELL. DENIES ANY NEEDS OR COMPLAINTS. USES CALL LIGHT APPROPRIATLY, NO OTHER CHANGES TO REPORT.
[2020-07-28] MEDS ORDERED: CEPH500 PO (10:03)
[2020-07-28] MEDS ORDERED: VISBIOME 112.51 EACH PO (10:04)
[2020-07-28] MEDS ORDERED: BENZ100A PO (10:04)
[2020-07-28] MEDS ORDERED: ALBU2.5V5 INH (10:05)
--- NOTE | 2020-07-28 12:18 | NUR ---
NO ACUTE CHANGES. PT WAITING TO RETURN TO [facility]CE YESTERDAY. PT ADMITTED FOR ASPIRATION PNM. VSS; SEE CHART. HX OF CVA WITH L SIDED DEFICITS. PT W/C BOUND AT BASELINE MOSTLY. TRANSPORT HERE AT 11:00 TO BUS ASSISTANT PT. STAND PIVOT TO W/C USING GB AND 2P ASSIST. MORBIDLY OBESE. MOSTLY INCONTINENT OF BLADDER. WILL CALL WHEN NEEDING TO HAVE BM. MEDS WHOLE IN APPLESAUCE W/O DIFFICULTY. ABLE TO FEED HIMSELF FINGER FOODS AND DRINK FROM CUP. PT PLACED ON THICKENED LIQUIDS, D/T ASPIRATION PRECAUTIONS. SOME SPEECH GARBLED. NO C/O PAIN. NO FURTHER NEEDS REPORTED.
== END 2020-07-28 10:55 | disposition home or self-care (01) | DRG 871 ==
LOC: ER 22:38 → ERHOLD 07-21 00:55 → MEDS 07-21 00:55
PROVIDERS: Emergency Medicine; Internal Medicine; ADMIT Family Medicine
DX: A41.9 Sepsis, unspecified organism (principal); J96.01 Acute respiratory failure with hypoxia; J69.0 Pneumonitis due to inhalation of food and vomit; G92 Toxic encephalopathy; N17.9 Acute kidney failure, unspecified; J98.11 Atelectasis; I69.354 Hemiplegia and hemiparesis following cerebral infarction affecting left non-dominant side; Z87.820 Personal history of traumatic brain injury; F20.9 Schizophrenia, unspecified; I10 Essential (primary) hypertension; F32.9 Major depressive disorder, single episode, unspecified; Z66 Do not resuscitate; F17.210 Nicotine dependence, cigarettes, uncomplicated
CPT/HCPCS: 36415; 71045; 80048; 80053; 80069; 80164; 83605; 85025; 87040; 92526; 92610; 93005; 93010; 94640; 94667; 94760; 96374; 96375; 97110; 97112; 97162; 97166; 97530; 99285-25; A9270; J0456; J0696; J1650; J7030; J7050

== ENCOUNTER → 2020-08-18 | Outpatient (CLI) | payer MEDICARE, OTHER ==
[~2020-08-18] MED LIST changes: +ALBU2.5V5 INH; +AMOX500 PO; +BENZ100A PO; +BISA10S PR; +CEPH500 PO; +DULCOLAX400 MG/5 M PO; +GUAI200 PO; +NYAMYC15 G1 TOP; +ONDA4ODT MM; +VISBIOME 112.51 EACH PO; +VITAMIN D-40010 MC1 PO
[2020-08-18 15:21] LABS: BASOPHILS ABSOLUTE AUTO 0.04 K/mm3 (0.00-0.23); BASOPHILS PERCENT AUTO 1 % (0-2); EOSINOPHILS ABSOLUTE AUTO 0.35 K/mm3 (0.00-0.68); EOSINOPHILS PERCENT AUTO 4 % (0-6); Hematocrit 35.8 % (37.0-53.0); Hemoglobin 11.5 g/dL (13.5-17.5); IMMATURE GRAN ABSOLUTE AUTO 0.06 K/mm3 (0.00-0.10); IMMATURE GRAN PERCENT AUTO 1 % (0-1); LYMPHOCYTES ABSOLUTE AUTO 3.45 K/mm3 (0.84-5.20); LYMPHOCYTES PERCENT AUTO 41 % (21-46); MONOCYTES ABSOLUTE AUTO 0.98 K/mm3 (0.16-1.47); MONOCYTES PERCENT AUTO 12 % (4-13); Mean Corpuscular HGB 29.8 pg (26.0-34.0); Mean Corpuscular HGB Conc 32.1 g/dL (31.5-36.5); Mean Corpuscular Volume 93 fL (80-100); Mean Platelet Volume 10.9 fL (9.1-12.4); NEUTROPHILS ABSOLUTE AUTO 3.53 K/mm3 (1.96-9.15); NEUTROPHILS PERCENT AUTO 42 % (41-73); Platelet Count 254 K/mm3 (150-400); RDW Coefficient Variation 14.8 % (11.7-14.2); RDW Standard Deviation 51.1 fL (35.1-46.3); Red Blood Cell Count 3.86 M/mm3 (4.30-5.90); White Blood Cell Count 8.41 K/mm3 (4.00-11.30)
[2020-08-18 16:00] LABS: Alanine Aminotransfer (ALT/SGP 20 U/L (12-78); Albumin/Globulin Ratio 0.6 (0.8-1.8); Alk Phos 53 U/L (50-136); Anion Gap 6 mmol/L (6-16); Aspartate Aminotrans (AST/SGOT 25 U/L (12-37); Bilirubin, Total 0.2 mg/dL (0.1-1.0); Blood Urea Nitrogen 17 mg/dL (8-24); CHOL/HDL RATIO 2.6; CO2, Blood 28 mmol/L (21-32); Calcium, Blood 9.1 mg/dL (8.5-10.1); Chloride, Blood 108 mmol/L (98-108); Cholesterol 159 mg/dL (50-200); Creatinine, Blood 0.81 mg/dL (0.60-1.20); Globulin, Blood 4.7 g/dL (2.2-4.0); Glomerular Filtration Rate >60 (60-); Glucose, Blood 78 mg/dL (70-99); HDL Cholesterol 60 mg/dL (>39); LDL/HDL RATIO 1.4; Low Density Lipoprotein Chol 85 mg/dL (0-110); Potassium, Blood 4.3 mmol/L (3.5-5.5); Sodium, Blood 142 mmol/L (136-145); Total Protein, Blood 7.7 g/dL (6.4-8.2); Triglycerides 71 mg/dL (30-160); Very Low Density Lipoprot Chol 14 mg/dL (6-32)
== END ==
LOC: PLD 13:08 → LAB SHORT 13:08
PROVIDERS: Nurse Practitioner Family
DX: E78.00 Pure hypercholesterolemia, unspecified (principal)
CPT/HCPCS: 80053; 80061; 85025

== ENCOUNTER → 2020-10-20 | Outpatient (CLI) | payer MEDICARE, OTHER ==
[2020-10-20 15:59] LABS: Valproic Acid 46.9 ug/mL (50.0-100.0)
== END | disposition home or self-care (01) ==
LOC: LAB 07:35 → LAB SHORT 07:35
PROVIDERS: Psychiatry & Neurology Psychiatry
DX: Z51.81 Encounter for therapeutic drug level monitoring (principal); Z79.899 Other long term (current) drug therapy
CPT/HCPCS: 80164

== ENCOUNTER → 2021-02-18 | Outpatient (CLI) | payer MEDICARE, OTHER ==
[2021-02-18 13:48] LABS: Valproic Acid 54.2 ug/mL (50.0-100.0)
== END | disposition home or self-care (01) ==
LOC: LAB SHORT 07:00 → LAB 07:00
PROVIDERS: Psychiatry & Neurology Psychiatry
DX: Z51.81 Encounter for therapeutic drug level monitoring (principal); Z79.899 Other long term (current) drug therapy
CPT/HCPCS: 80164

== ENCOUNTER → 2021-03-16 | Outpatient (CLI) | payer MEDICARE, OTHER ==
[2021-03-16 19:04] LABS: Source, Urine Clean Catch
[2021-03-16 19:37] LABS: Appearance, Urine Turbid (Clear); Bilirubin, Urine Neg (Neg); Blood, Urine Neg (Neg); Color, Urine Yellow (P-Yellow); Glucose Qualitative, Urine Neg (Neg); Ketones, Urine Neg (Neg); Leukocyte Esterase, Urine 3+ (Neg); Nitrite, Urine Neg (Neg); Protein, Urine Neg (Neg); Urobilinogen, Urine NORM (Normal)
[2021-03-16 20:10] LABS: Red Blood Cells, Urine Not Seen /hpf (0-2); Squamous Epithelial Cells Mod /hpf (Few); White Blood Cells, Urine 50-100 /hpf (0-5)
[2021-03-16 20:11] LABS: Amorphous Heavy (0-Heavy); Bacteria Many /hpf
== END | disposition home or self-care (01) ==
LOC: LAB SHORT 19:03 → LAB 19:03
PROVIDERS: Nurse Practitioner Family
DX: N39.0 Urinary tract infection, site not specified (principal)
CPT/HCPCS: 81001; 87077; 87086; 87186